=== PATIENT | male | born 1950 | race Caucasian/White ===

== ENCOUNTER 2024-06-01 14:44 | Inpatient (IN) | payer OTHER ==
[~2024-06-01] VITALS: Ht 180.3 cm; Wt 83.5 kg
[2024-06-01] VITALS (28 sets, daily range): BP systolic 48–199; BP diastolic 32–101; TEMP 98; O2SAT 98–100
[2024-06-01] MEDS ORDERED: MECL12.5 PO (15:11)
[2024-06-01] MEDS ORDERED: SEVE800T8 (15:11)
[2024-06-01] MEDS ORDERED: GUAI-1197 PO (15:11)
[2024-06-01] MEDS ORDERED: PANT40TA49 PO (15:11)
[2024-06-01] MEDS ORDERED: BENZ200C53 PO (15:11)
[2024-06-01] MEDS ORDERED: FURO-151 PO (15:11)
[2024-06-01] MEDS ORDERED: CARV12.52 PO (15:11)
[2024-06-01] MEDS ORDERED: NIFE30TA2 PO (15:11)
[2024-06-01] MEDS ORDERED: KRIL1CAP19 PO (15:11)
[2024-06-01] MEDS ORDERED: ROSU5TAB (15:11)
[2024-06-01] MEDS ORDERED: HYDR-3326 PO (15:11)
[2024-06-01] MEDS ORDERED: SEVE800T8 PO (15:11)
[2024-06-01] MEDS ORDERED: OMEP40CA21 (15:11)
[2024-06-01] MEDS ORDERED: DOLU50TA PO (15:11)
[2024-06-01] MEDS ORDERED: LAMO100T17 PO (15:11)
[2024-06-01] MEDS ORDERED: LINA5TAB PO (15:11)
[2024-06-01] MEDS ORDERED: HYDR-4077 PO (15:11)
[2024-06-01] MEDS ORDERED: TAMS0.4C34 PO (15:11)
[2024-06-01] MEDS ORDERED: LEVO88CA4 PO (15:11)
[2024-06-01] MEDS ORDERED: ACET-2605 PO (15:11)
[2024-06-01 15:45] LABS: BASOPHILS # (AUTO) 0.1 K/UL (0.0-0.2); BASOPHILS % (AUTO) 1.1 % (0.0-2.0); DIFFERENTIAL COMMENT 1; EOSINOPHILS # (AUTO) 0.1 K/uL (0.0-0.7); EOSINOPHILS % (AUTO) 1.6 % (0.0-7.0); HEMOGLOBIN 9.6 g/dL (12.5-16.3); LYMPHOCYTES # (AUTO) 1.6 K/uL (0.8-4.8); LYMPHOCYTES % (AUTO) 16.7 % (20.5-51.5); MEAN CORPUSCULAR HEMOGLOBIN 28.4 uug (23.8-33.4); MEAN CORPUSCULAR HGB CONC 32 g/dL (32.5-36.3); MEAN CORPUSCULAR VOLUME 88.7 fL (73.0-96.2); MONOCYTES # (AUTO) 0.8 K/uL (0.1-1.30); MONOCYTES % (AUTO) 8.7 % (0.0-11.0); NEUTROPHILS # (AUTO) 6.7 K/uL (1.8-8.9); NEUTROPHILS % (AUTO) 71.9 % (38.5-71.5); PLATELET COUNT (AUTO) 330 K/uL (152-348); RED BLOOD CELL COUNT(AUTO) 3.38 MIL/uL (4.06-5.63); RED CELL DISTRIBUTION WIDTH 16.3 % (12.1-16.2); WHITE BLOOD COUNT (AUTO) 9.4 K/uL (3.6-10.2)
[2024-06-01 16:06] LABS: CALCIUM 9.5 mg/dL (8.5-10.1); CARBON DIOXIDE 21 mmol/L (21-32); CHLORIDE 93 mmol/L (98-107); GLUCOSE 99 mg/dL (74-106); SODIUM SERUM 132 mmol/L (136-145)
[2024-06-01 16:12] LABS: ALANINE AMINOTRANSFERASE 16 U/L (16-63); ALBUMIN 3.6 g/dL (3.4-5.0); ALKALINE PHOSPHATASE 71 U/L (50-136); ASPARTATE AMINOTRANSFERASE 7 U/L (15-37); BILIRUBIN,DIRECT 0.2 mg/dL (0.0-0.2); BILIRUBIN,TOTAL 0.6 mg/dL (0.2-1.0); NT-PRO BNP 84865 pg/mL (0-125); TOTAL PROTEIN, SERUM 7.6 g/dL (6.4-8.2)
[2024-06-01 16:14] LABS: CREATININE 17.7 mg/dL (0.6-1.3); POTASSIUM 8.1 mmol/L (3.5-5.1); UREA NITROGEN, BLOOD 137 mg/dL (7-18)
[2024-06-01] MEDS ORDERED: ALBUTEROL SULFATE 2.5 MG/3 ML NEBU ONE (16:26)
[2024-06-01] MEDS ORDERED: SODIUM BICARBONATE 8.4% 50 MEQ/50 ML DISP.SYRIN IV ONE (16:28)
[2024-06-01] MEDS ORDERED: FUROSEMIDE 20 MG/2 ML VIAL ONE ×2 (16:28→17:04)
[2024-06-01] MEDS ORDERED: INSULIN REGULAR, HUMAN 1000 UNIT/10 ML VIAL ONE ×2 (16:29→16:30)
[2024-06-01] MEDS ORDERED: SODIUM POLYSTYRENE SULFONATE 15 G/60 ML LIQUID UDC PO ONE (16:30)
[2024-06-01] MEDS: ALBUTEROL SULFATE 2.5 MG/3 ML NEBU NEB ONE (16:30)
[2024-06-01] MEDS ORDERED: DEXTROSE 50% 50 ML DISP.SYRIN ONE (16:51)
[2024-06-01] MEDS: FUROSEMIDE 20 MG/2 ML VIAL IVP ONE (17:01)
[2024-06-01] MEDS: SODIUM BICARBONATE 8.4% 50 MEQ/50 ML DISP.SYRIN IV ONE (17:01)
[2024-06-01] MEDS: DEXTROSE 50% 50 ML DISP.SYRIN IV ONE (17:02)
[2024-06-01] MEDS: INSULIN REGULAR, HUMAN 1000 UNIT/10 ML VIAL IV ONE (17:02)
[2024-06-01 17:08] LABS: ABG SITE RIGHT RADIAL; COHb 0.3 % (0.5-1.5); VT, ABG 500 mL
[2024-06-01 17:58] LABS: ABG BASE EXCESS -8.5 mmol/L (-2.0-3.0); ABG HCO3 21.1 mmol/L (21.0-28.0); ABG PCO2 64.4 mmHg (35.0-48.0); ABG PH 7.134 (7.350-7.450); ABG PO2 391.1 mmHg (83.0-108.0); ABG TOTAL HEMOGLOBIN 11.7 G/dL (13.5-17.5); AaDO2 99.7 mmHg; MetHb 0.3 % (0.0-1.5); O2Hb 99.2 % (94.0-98.0)
[2024-06-01] MEDS ORDERED: ALBUTEROL SULFATE 8 GM HFA.AER.AD IH PRN (18:30)
[2024-06-01] MEDS: LAMOTRIGINE 100 MG TABLET PO SCH (18:30)
[2024-06-01] MEDS ORDERED: ONDANSETRON 4 MG/2 ML VIAL IV PRN (18:30)
[2024-06-01 18:46] LABS: *BILIRUBIN,URIN NEGATIVE (NEGATIVE); *BLOOD, URINE NEGATIVE (NEGATIVE); *CLARITY,URINE CLEAR (CLEAR); *COLOR,URINE YELLOW (YELLOW); *KETONES,URINE NEGATIVE (NEGATIVE); *PROTEIN,URINE 3+ (NEGATIVE); *UROBILINOGEN,URINE 0.2 E.U./dl (NORMAL); LEUKOCYTE ESTERASE ,URINE TRACE (NEGATIVE); NITRITE, URINE NEGATIVE (NEGATIVE); RBC,URINE 0-3 /HPF (0-3); UGLUCOSE NEGATIVE (NEGATIVE); WBC,URINE 0-3 /HPF (0-3)
[2024-06-01] MEDS: ETOMIDATE 20 MG/10 ML VIAL IV ONE (19:02)
[2024-06-01] MEDS: ROCURONIUM BROMIDE 50 MG/5 ML VIAL IV ONE (19:15)
[2024-06-01] MEDS: PROPOFOL 100 ML IV PRN (19:36)
[2024-06-01] MEDS: hydrALAZINE HCL 20 MG/1 ML VIAL IV PRN (21:04)
[2024-06-01] MEDS: ATORVASTATIN 40 MG TABLET PO SCH (21:15)
[2024-06-01] MEDS: MORPHINE SULFATE 2 MG/1 ML DISP.SYRIN IVP PRN (21:20)
[2024-06-01] MEDS ORDERED: ALBUMIN HUMAN 25% 100 ML IV ONE (22:00)
[2024-06-02] VITALS (67 sets, daily range): BP systolic 83–184; BP diastolic 48–89; TEMP 97.8–98.9; O2SAT 97–100
[2024-06-02] MEDS: BLOOD SUGAR DIAGNOSTIC 1 EACH STRIP VI SCH (00:27)
[2024-06-02 05:30] LABS: BASOPHILS % (AUTO) 0.8 % (0.0-2.0); EOSINOPHILS # (AUTO) 0.1 K/uL (0.0-0.7); EOSINOPHILS % (AUTO) 2.3 % (0.0-7.0); HEMATOCRIT 28.4 % (36.7-47.1); HEMOGLOBIN 9.5 g/dL (12.5-16.3); LYMPHOCYTES # (AUTO) 1.5 K/uL (0.8-4.8); LYMPHOCYTES % (AUTO) 23.3 % (20.5-51.5); MEAN CORPUSCULAR HEMOGLOBIN 29.6 uug (23.8-33.4); MEAN CORPUSCULAR HGB CONC 34 g/dL (32.5-36.3); MONOCYTES # (AUTO) 0.7 K/uL (0.1-1.30); MONOCYTES % (AUTO) 10.5 % (0.0-11.0); NEUTROPHILS % (AUTO) 63.1 % (38.5-71.5); PLATELET COUNT (AUTO) 291 K/uL (152-348); RED BLOOD CELL COUNT(AUTO) 3.22 MIL/uL (4.06-5.63); RED CELL DISTRIBUTION WIDTH 15.8 % (12.1-16.2); WHITE BLOOD COUNT (AUTO) 6.3 K/uL (3.6-10.2)
[2024-06-02 05:54] LABS: ALANINE AMINOTRANSFERASE 15 U/L (16-63); ALBUMIN 3.2 g/dL (3.4-5.0); ALKALINE PHOSPHATASE 65 U/L (50-136); ASPARTATE AMINOTRANSFERASE 11 U/L (15-37); BILIRUBIN,TOTAL 0.5 mg/dL (0.2-1.0); CALCIUM 9.3 mg/dL (8.5-10.1); CARBON DIOXIDE 28 mmol/L (21-32); CHLORIDE 94 mmol/L (98-107); GLUCOSE 65 mg/dL (74-106); SODIUM SERUM 135 mmol/L (136-145); TOTAL PROTEIN, SERUM 6.9 g/dL (6.4-8.2)
[2024-06-02 06:02] LABS: POTASSIUM 6.4 mmol/L (3.5-5.1)
[2024-06-02 06:03] LABS: UREA NITROGEN, BLOOD 98 mg/dL (7-18)
[2024-06-02 06:04] LABS: PHOSPHOROUS 8.3 mg/dL (2.5-4.9)
[2024-06-02] MEDS: DEXTROSE 50% 50 ML DISP.SYRIN IV PRN (06:22)
[2024-06-02] MEDS ORDERED: LEVOTHYROXINE SODIUM 88 MCG TABLET PO SCH (06:30)
[2024-06-02] MEDS ORDERED: hydrALAZINE HCL 20 MG/1 ML VIAL IV ONE (06:45)
[2024-06-02] MEDS ORDERED: ALBUMIN HUMAN 25% 50 ML IV ONE (06:45)
[2024-06-02] MEDS ORDERED: ALBUMIN HUMAN 25% 50 ML IV PRN ×2 (07:00→07:30)
[2024-06-02] MEDS: SODIUM BICARBONATE 8.4% 50 MEQ/50 ML DISP.SYRIN IV ONE (07:11)
[2024-06-02 08:24] LABS: ABG HCO3 26.4 mmol/L (21.0-28.0); ABG PCO2 31.4 mmHg (35.0-48.0); ABG PH 7.543 (7.350-7.450); ABG PO2 88.7 mmHg (83.0-108.0); ABG SITE RIGHT RADIAL; ABG TOTAL HEMOGLOBIN 9.1 G/dL (13.5-17.5); AaDO2 97.7 mmHg; MetHb 0.3 % (0.0-1.5); O2Hb 96.3 % (94.0-98.0); VT, ABG 500 mL
[2024-06-02] MEDS ORDERED: PROPOFOL 100 ML IV PRN (08:30)
[2024-06-02] MEDS: PROPOFOL 100 ML IV PRN (08:48)
[2024-06-02] MEDS: CARVEDILOL 12.5 MG TABLET PO SCH (08:53)
[2024-06-02] MEDS: ASPIRIN 81 MG TAB.CHEW PO SCH (08:53)
[2024-06-02] MEDS: TAMSULOSIN HCL 0.4 MG CAP.SR.24H PO SCH (08:53)
[2024-06-02] MEDS: PANTOPRAZOLE SODIUM 40 MG TABLET.DR PO SCH (08:53)
[2024-06-02] MEDS ORDERED: BUDE10.2 IH (08:53)
[2024-06-02] MEDS: HEPARIN SODIUM,PORCINE 5,000 UNITS/ML VIAL SQ SCH (08:58)
[2024-06-02] MEDS: NIFEdipine XL 30 MG TABSR PO SCH (09:03)
[2024-06-02] MEDS ORDERED: FINA5TAB11 PO (10:08)
[2024-06-02] MEDS ORDERED: EMTR1TAB13 PO (10:08)
[2024-06-02] MEDS ORDERED: NIFE90TA61 PO (10:22)
[2024-06-02] MEDS ORDERED: ATOR10TA PO (10:22)
[2024-06-02] MEDS ORDERED: ACYC-106 PO (10:22)
[2024-06-02] MEDS ORDERED: LOSA50TA39 PO (10:32)
[2024-06-02] MEDS: NEPRO 1000 ML GT PRN (13:13)
[2024-06-02 14:14] LABS: FREE T4 (FREE THYROXINE) 0.73 ng/dL (0.76-1.46)
[2024-06-02] MEDS ORDERED: EPOETIN ALFA 20,000 UNIT/ML ML SQ ONE (14:15)
[2024-06-02] MEDS: SEVELAMER CARBONATE 800 MG TABLET PO SCH (14:32)
[2024-06-02] MEDS: EPOETIN ALFA 20,000 UNIT/ML ML SQ ONE (14:33)
[2024-06-02] MEDS: SODIUM ZIRCONIUM CYCLOSILICATE 10 GM POWD.PACK NG ONE (16:07)
[2024-06-02] MEDS ORDERED: ALBUMIN HUMAN 25% 100 ML IV PRN (19:45)
[2024-06-02] MEDS: ALBUMIN HUMAN 25% 100 ML IV ONE (20:08)
[2024-06-02] MEDS ORDERED: ALBUMIN HUMAN 25% 50 ML ONE (20:10)
[2024-06-03] VITALS (47 sets, daily range): BP systolic 88–182; BP diastolic 41–82; TEMP 97.7–98.7; O2SAT 90–100
[2024-06-03 05:05] LABS: BASOPHILS # (AUTO) 0.1 K/UL (0.0-0.2); BASOPHILS % (AUTO) 1.5 % (0.0-2.0); EOSINOPHILS # (AUTO) 0.3 K/uL (0.0-0.7); EOSINOPHILS % (AUTO) 4.5 % (0.0-7.0); HEMATOCRIT 25.3 % (36.7-47.1); HEMOGLOBIN 8.7 g/dL (12.5-16.3); LYMPHOCYTES # (AUTO) 1.2 K/uL (0.8-4.8); LYMPHOCYTES % (AUTO) 20.4 % (20.5-51.5); MEAN CORPUSCULAR HEMOGLOBIN 30.2 uug (23.8-33.4); MEAN CORPUSCULAR HGB CONC 34 g/dL (32.5-36.3); MEAN CORPUSCULAR VOLUME 87.7 fL (73.0-96.2); MONOCYTES # (AUTO) 0.5 K/uL (0.1-1.30); MONOCYTES % (AUTO) 8.7 % (0.0-11.0); NEUTROPHILS # (AUTO) 3.9 K/uL (1.8-8.9); NEUTROPHILS % (AUTO) 64.9 % (38.5-71.5); PLATELET COUNT (AUTO) 260 K/uL (152-348); RED BLOOD CELL COUNT(AUTO) 2.88 MIL/uL (4.06-5.63); RED CELL DISTRIBUTION WIDTH 15.8 % (12.1-16.2)
[2024-06-03 05:08] LABS: HEPATITIS B SURFACE AB, QUAL Reactive (.); HEPATITIS B SURFACE AG Negative (Negative)
[2024-06-03 05:08] LABS: HEPATITIS B SURFACE AB, QUAL Reactive (.); HEPATITIS B SURFACE AG Negative (Negative)
[2024-06-03 05:53] LABS: IRON, SERUM 69 ug/dL (50-175)
[2024-06-03 06:02] LABS: CALCIUM 9.3 mg/dL (8.5-10.1); CARBON DIOXIDE 24 mmol/L (21-32); CHLORIDE 96 mmol/L (98-107); GLUCOSE 101 mg/dL (74-106); MAGNESIUM 2.3 mg/dL (1.8-2.4); POTASSIUM 5.6 mmol/L (3.5-5.1); SODIUM SERUM 134 mmol/L (136-145); UREA NITROGEN, BLOOD 72 mg/dL (7-18)
[2024-06-03 06:13] LABS: CREATININE 11.5 mg/dL (0.6-1.3)
[2024-06-03 06:14] LABS: PHOSPHOROUS 8.3 mg/dL (2.5-4.9)
[2024-06-03 06:25] LABS: ABG BASE EXCESS -5.1 mmol/L (-2.0-3.0); ABG HCO3 18.8 mmol/L (21.0-28.0); ABG PCO2 30.4 mmHg (35.0-48.0); ABG PH 7.409 (7.350-7.450); ABG PO2 95.5 mmHg (83.0-108.0); ABG SITE RIGHT RADIAL; ABG TOTAL HEMOGLOBIN 9.2 G/dL (13.5-17.5); AaDO2 97.4 mmHg; COHb 0.3 % (0.5-1.5); MetHb 0.3 % (0.0-1.5); O2Hb 96.1 % (94.0-98.0); VT, ABG 500 mL
[2024-06-03] MEDS: SEVELAMER CARBONATE 800 MG POWD.PACK GT SCH ×2 (08:25→19:14)
[2024-06-03] MEDS: PANTOPRAZOLE ORAL SUSPENSION 40 MG SUSPDR.PKT GT SCH (08:27)
[2024-06-03 09:28] LABS: FERRITIN 1690 ng/mL (26-388)
[2024-06-03] MEDS: LORAZEPAM 2 MG/1 ML VIAL IV ONE (12:08)
[2024-06-03] MEDS ORDERED: NOREPINEPHRINE 8MG/NS 250ML 250 ML IV PRN (14:15)
[2024-06-03] MEDS: NOREPINEPHRINE BITARTRATE 32 MG in IV NORMAL SALINE 218 ML IV PRN (16:54)
[2024-06-03] MEDS: HEPARIN SODIUM,PORCINE 5,000 UNITS/ML VIAL SQ SCH (20:32)
[2024-06-04] VITALS (47 sets, daily range): BP systolic 83–179; BP diastolic 43–133; TEMP 97.8–101.5; O2SAT 82–100
[2024-06-04 05:13] LABS: BASOPHILS # (AUTO) 0.1 K/UL (0.0-0.2); BASOPHILS % (AUTO) 1.3 % (0.0-2.0); EOSINOPHILS # (AUTO) 0.4 K/uL (0.0-0.7); EOSINOPHILS % (AUTO) 5.6 % (0.0-7.0); HEMATOCRIT 29.5 % (36.7-47.1); LYMPHOCYTES # (AUTO) 1.5 K/uL (0.8-4.8); LYMPHOCYTES % (AUTO) 18.8 % (20.5-51.5); MEAN CORPUSCULAR HEMOGLOBIN 29.7 uug (23.8-33.4); MEAN CORPUSCULAR HGB CONC 34 g/dL (32.5-36.3); MEAN CORPUSCULAR VOLUME 87.8 fL (73.0-96.2); MONOCYTES # (AUTO) 0.6 K/uL (0.1-1.30); MONOCYTES % (AUTO) 8.4 % (0.0-11.0); NEUTROPHILS # (AUTO) 5.1 K/uL (1.8-8.9); NEUTROPHILS % (AUTO) 65.9 % (38.5-71.5); PLATELET COUNT (AUTO) 255 K/uL (152-348); RED BLOOD CELL COUNT(AUTO) 3.36 MIL/uL (4.06-5.63); RED CELL DISTRIBUTION WIDTH 15.6 % (12.1-16.2); WHITE BLOOD COUNT (AUTO) 7.8 K/uL (3.6-10.2)
[2024-06-04 05:54] LABS: CALCIUM 9.1 mg/dL (8.5-10.1); CARBON DIOXIDE 28 mmol/L (21-32); CHLORIDE 92 mmol/L (98-107); GLUCOSE 101 mg/dL (74-106); MAGNESIUM 1.7 mg/dL (1.8-2.4); POTASSIUM 4.5 mmol/L (3.5-5.1); SODIUM SERUM 134 mmol/L (136-145); UREA NITROGEN, BLOOD 47 mg/dL (7-18)
[2024-06-04 06:07] LABS: CREATININE 9.3 mg/dL (0.6-1.3)
[2024-06-04] MEDS: ACETAMINOPHEN 325 MG TABLET PO PRN (06:08)
[2024-06-04 06:09] LABS: PHOSPHOROUS 8.2 mg/dL (2.5-4.9)
[2024-06-04 07:49] LABS: ABG BASE EXCESS 1.5 mmol/L (-2.0-3.0); ABG HCO3 25.3 mmol/L (21.0-28.0); ABG PCO2 36.6 mmHg (35.0-48.0); ABG PH 7.457 (7.350-7.450); ABG PO2 80.5 mmHg (83.0-108.0); ABG SITE RIGHT RADIAL; ABG TOTAL HEMOGLOBIN 10.7 G/dL (13.5-17.5); AaDO2 96.5 mmHg; COHb 0.3 % (0.5-1.5); CPAP,BG 8 cmH20; MetHb 0.3 % (0.0-1.5); O2Hb 95.3 % (94.0-98.0)
[2024-06-04] MEDS ORDERED: PIPERACILLIN SODIUM/TAZOBACTAM 3.375 G in IV DEXTROSE 5% 50 ML IV SCH (08:30)
[2024-06-04] MEDS ORDERED: DC PROPOFOL ONCE EXTUBATED XX PRN (08:30)
[2024-06-04] MEDS: PIPERACILLIN/TAZO 2.25 G in IV DEXTROSE 5% 50 ML IV SCH (09:01)
[2024-06-04] MEDS: MAGNESIUM OXIDE 400 MG TABLET GT ONE (10:00)
[2024-06-04 10:45] LABS: *BILIRUBIN,URIN NEGATIVE (NEGATIVE); *BLOOD, URINE 3+ (NEGATIVE); *CLARITY,URINE CLEAR (CLEAR); *COLOR,URINE YELLOW (YELLOW); *KETONES,URINE NEGATIVE (NEGATIVE); *UROBILINOGEN,URINE 0.2 E.U./dl (NORMAL); LEUKOCYTE ESTERASE ,URINE 1+ (NEGATIVE); NITRITE, URINE NEGATIVE (NEGATIVE); PH,URINE 7.5 (5.0-8.0); UGLUCOSE NEGATIVE (NEGATIVE)
[2024-06-04 10:56] LABS: *PROTEIN,URINE 3+ (NEGATIVE)
[2024-06-04 10:59] LABS: BACTERIA,URINE MANY /HPF (NONE SEEN); SQUAMOUS EPITHELIAL CELL,UR FEW /HPF (NONE SEEN); WBC,URINE 20-50 /HPF (0-3)
[2024-06-04] MEDS ORDERED: SEVELAMER CARBONATE 800 MG TABLET PO SCH (12:00)
[2024-06-04] MEDS: hydrALAZINE HCL 50 MG TABLET PO SCH (13:00)
[2024-06-04] MEDS: MAGNESIUM SULFATE/D5W 100 ML IV SCH (13:09)
[2024-06-04] MEDS: NIFEdipine XL 60 MG TABSR PO SCH (16:40)
[2024-06-04] MEDS: LOSARTAN POTASSIUM 50 MG TABLET PO SCH (16:43)
[2024-06-04] MEDS: FUROSEMIDE 40 MG TABLET PO SCH (16:43)
[2024-06-04] MEDS ORDERED: NIFEdipine XL 90 MG TABSR PO SCH (17:00)
[2024-06-04] MEDS: NOREPINEPHRINE BITARTRATE 32 MG in IV NORMAL SALINE 218 ML IV PRN (19:05)
[2024-06-04] MEDS: ATORVASTATIN 10 MG TABLET PO SCH (21:07)
[2024-06-05] VITALS (26 sets, daily range): BP systolic 68–171; BP diastolic 43–68; TEMP 98–99; O2SAT 91–100
[2024-06-05 05:08] LABS: BASOPHILS # (AUTO) 0.1 K/UL (0.0-0.2); EOSINOPHILS # (AUTO) 0.3 K/uL (0.0-0.7); EOSINOPHILS % (AUTO) 3.7 % (0.0-7.0); HEMATOCRIT 30.1 % (36.7-47.1); LYMPHOCYTES # (AUTO) 1.3 K/uL (0.8-4.8); LYMPHOCYTES % (AUTO) 17.8 % (20.5-51.5); MEAN CORPUSCULAR HEMOGLOBIN 29.2 uug (23.8-33.4); MEAN CORPUSCULAR HGB CONC 33 g/dL (32.5-36.3); MONOCYTES # (AUTO) 0.9 K/uL (0.1-1.30); MONOCYTES % (AUTO) 11.8 % (0.0-11.0); NEUTROPHILS # (AUTO) 4.9 K/uL (1.8-8.9); NEUTROPHILS % (AUTO) 65.7 % (38.5-71.5); PLATELET COUNT (AUTO) 247 K/uL (152-348); RED BLOOD CELL COUNT(AUTO) 3.43 MIL/uL (4.06-5.63); WHITE BLOOD COUNT (AUTO) 7.4 K/uL (3.6-10.2)
[2024-06-05 05:29] LABS: CALCIUM 9.7 mg/dL (8.5-10.1); CARBON DIOXIDE 31 mmol/L (21-32); CHLORIDE 98 mmol/L (98-107); CREATININE 7.1 mg/dL (0.6-1.3); GLUCOSE 91 mg/dL (74-106); MAGNESIUM 2.2 mg/dL (1.8-2.4); PHOSPHOROUS 5.7 mg/dL (2.5-4.9); POTASSIUM 4.4 mmol/L (3.5-5.1); SODIUM SERUM 140 mmol/L (136-145); UREA NITROGEN, BLOOD 28 mg/dL (7-18)
[2024-06-05 05:41] LABS: ABG BASE EXCESS 4.9 mmol/L (-2.0-3.0); ABG HCO3 27.3 mmol/L (21.0-28.0); ABG PCO2 32.4 mmHg (35.0-48.0); ABG PH 7.544 (7.350-7.450); ABG PO2 65.5 mmHg (83.0-108.0); ABG SITE LEFT RADIAL; ABG TOTAL HEMOGLOBIN 10.4 G/dL (13.5-17.5); AaDO2 95.2 mmHg; COHb 0.2 % (0.5-1.5); MetHb 0.3 % (0.0-1.5); O2Hb 93.2 % (94.0-98.0)
[2024-06-05] MEDS: LEVOTHYROXINE SODIUM 88 MCG TABLET PO SCH (06:00)
[2024-06-05] MEDS: LINAGLIPTIN 5 MG TABLET PO SCH (08:04)
[2024-06-05] MEDS: FINASTERIDE 5 MG TABLET PO SCH (08:06)
[2024-06-05] MEDS ORDERED: ACYCLOVIR 400 MG TABLET PO SCH (09:00)
[2024-06-05] MEDS: PANTOPRAZOLE SODIUM 40 MG TABLET.DR PO SCH (09:15)
[2024-06-05] MEDS: INSULIN REGULAR, HUMAN 1000 UNIT/10 ML VIAL SQ PRN (11:52)
[2024-06-05] MEDS: SEVELAMER CARBONATE 800 MG TABLET PO SCH (11:53)
[2024-06-05] MEDS: ACYCLOVIR 200 MG CAPSULE PO SCH (12:10)
[2024-06-06] VITALS (34 sets, daily range): BP systolic 106–166; BP diastolic 45–129; TEMP 97.7–98.9; O2SAT 96–100
[2024-06-06 05:52] LABS: BASOPHILS # (AUTO) 0.1 K/UL (0.0-0.2); BASOPHILS % (AUTO) 0.8 % (0.0-2.0); DIFFERENTIAL COMMENT 0; EOSINOPHILS # (AUTO) 0.5 K/uL (0.0-0.7); EOSINOPHILS % (AUTO) 6.8 % (0.0-7.0); HEMATOCRIT 27.4 % (36.7-47.1); HEMOGLOBIN 9.1 g/dL (12.5-16.3); LYMPHOCYTES # (AUTO) 1.6 K/uL (0.8-4.8); LYMPHOCYTES % (AUTO) 22.2 % (20.5-51.5); MEAN CORPUSCULAR HEMOGLOBIN 29.5 uug (23.8-33.4); MEAN CORPUSCULAR HGB CONC 33 g/dL (32.5-36.3); MEAN CORPUSCULAR VOLUME 88.6 fL (73.0-96.2); MONOCYTES # (AUTO) 0.9 K/uL (0.1-1.30); MONOCYTES % (AUTO) 12.3 % (0.0-11.0); NEUTROPHILS # (AUTO) 4.2 K/uL (1.8-8.9); NEUTROPHILS % (AUTO) 57.9 % (38.5-71.5); PLATELET COUNT (AUTO) 243 K/uL (152-348); RED BLOOD CELL COUNT(AUTO) 3.09 MIL/uL (4.06-5.63); RED CELL DISTRIBUTION WIDTH 15.4 % (12.1-16.2); WHITE BLOOD COUNT (AUTO) 7.2 K/uL (3.6-10.2)
[2024-06-06 05:59] LABS: CALCIUM 9.9 mg/dL (8.5-10.1); CARBON DIOXIDE 31 mmol/L (21-32); CHLORIDE 98 mmol/L (98-107); GLUCOSE 102 mg/dL (74-106); MAGNESIUM 2.4 mg/dL (1.8-2.4); POTASSIUM 4.5 mmol/L (3.5-5.1); SODIUM SERUM 141 mmol/L (136-145); UREA NITROGEN, BLOOD 47 mg/dL (7-18)
[2024-06-06 06:18] LABS: C-REACTIVE PROTEIN 3.57 mg/dL (0.00-0.30)
[2024-06-06 06:20] LABS: CREATININE 9.9 mg/dL (0.6-1.3)
[2024-06-06] MEDS: ALBUTEROL SULFATE 2.5 MG/3 ML NEBU NEB PRN (10:56)
[2024-06-07] VITALS (16 sets, daily range): BP systolic 94–178; BP diastolic 47–75; TEMP 98–99.5; O2SAT 87–100
[2024-06-07 05:38] LABS: MEAN CORPUSCULAR VOLUME 88.6 fL (73.0-96.2)
[2024-06-07 06:02] LABS: BASOPHILS # (AUTO) 0.1 K/UL (0.0-0.2); BASOPHILS % (AUTO) 1.1 % (0.0-2.0); DIFFERENTIAL COMMENT 0; EOSINOPHILS # (AUTO) 0.4 K/uL (0.0-0.7); EOSINOPHILS % (AUTO) 5.1 % (0.0-7.0); HEMATOCRIT 28.4 % (36.7-47.1); HEMOGLOBIN 9.3 g/dL (12.5-16.3); LYMPHOCYTES # (AUTO) 1.8 K/uL (0.8-4.8); LYMPHOCYTES % (AUTO) 23.3 % (20.5-51.5); MEAN CORPUSCULAR HGB CONC 33 g/dL (32.5-36.3); MONOCYTES % (AUTO) 13.4 % (0.0-11.0); NEUTROPHILS # (AUTO) 4.4 K/uL (1.8-8.9); NEUTROPHILS % (AUTO) 57.1 % (38.5-71.5); PLATELET COUNT (AUTO) 279 K/uL (152-348); RED CELL DISTRIBUTION WIDTH 15.7 % (12.1-16.2); WHITE BLOOD COUNT (AUTO) 7.8 K/uL (3.6-10.2)
[2024-06-07 06:14] LABS: CALCIUM 9.6 mg/dL (8.5-10.1); CARBON DIOXIDE 30 mmol/L (21-32); CHLORIDE 99 mmol/L (98-107); GLUCOSE 102 mg/dL (74-106); MAGNESIUM 2.4 mg/dL (1.8-2.4); POTASSIUM 4.8 mmol/L (3.5-5.1); SODIUM SERUM 141 mmol/L (136-145); UREA NITROGEN, BLOOD 32 mg/dL (7-18)
[2024-06-07 06:19] LABS: CREATININE 8.4 mg/dL (0.6-1.3)
== END 2024-06-07 12:41 | disposition home or self-care (01) | DRG 208 ==
LOC: ER 14:44 → CCU 19:10
PROVIDERS: ADMIT Internal Medicine; ATTEND Internal Medicine
PROC: 5A1945Z Respiratory Ventilation, 24-96 Consecutive Hours (ICD-10-PCS; principal; 2024-06-01)
PROC: 0BH17EZ Insertion of Endotracheal Airway into Trachea, Via Natural or Artificial Opening (ICD-10-PCS; 2024-06-01)
PROC: 5A1D70Z Performance of Urinary Filtration, Intermittent, Less than 6 Hours Per Day (ICD-10-PCS; 2024-06-01)
PROC: 05H933Z Insertion of Infusion Device into Right Brachial Vein, Percutaneous Approach (ICD-10-PCS; 2024-06-02)
DX: J96.21 Acute and chronic respiratory failure with hypoxia (principal); N18.6 End stage renal disease; I21.A1 Myocardial infarction type 2; G93.41 Metabolic encephalopathy; I50.33 Acute on chronic diastolic (congestive) heart failure; J69.0 Pneumonitis due to inhalation of food and vomit; J44.0 Chronic obstructive pulmonary disease with (acute) lower respiratory infection; I13.2 Hypertensive heart and chronic kidney disease with heart failure and with stage 5 chronic kidney disease, or end stage renal disease; I16.9 Hypertensive crisis, unspecified; N39.0 Urinary tract infection, site not specified; E87.4 Mixed disorder of acid-base balance; E87.1 Hypo-osmolality and hyponatremia; J96.22 Acute and chronic respiratory failure with hypercapnia; E87.5 Hyperkalemia; F31.9 Bipolar disorder, unspecified; J44.9 Chronic obstructive pulmonary disease, unspecified; N40.0 Benign prostatic hyperplasia without lower urinary tract symptoms; E11.22 Type 2 diabetes mellitus with diabetic chronic kidney disease; E03.9 Hypothyroidism, unspecified; I35.8 Other nonrheumatic aortic valve disorders; I25.10 Atherosclerotic heart disease of native coronary artery without angina pectoris; I70.0 Atherosclerosis of aorta; D64.9 Anemia, unspecified; I27.20 Pulmonary hypertension, unspecified; Z99.2 Dependence on renal dialysis; Z88.2 Allergy status to sulfonamides; Z88.5 Allergy status to narcotic agent; Z88.6 Allergy status to analgesic agent; Z79.890 Hormone replacement therapy; Z79.899 Other long term (current) drug therapy; M89.8X9 Other specified disorders of bone, unspecified site
CPT/HCPCS: 36415; 36600; 71045; 82803; 83550; 83605; 83735; 84100; 84443; 84481; 84484; 85025; 85730; 86140; 86706; 87040; 87340; 87536; 90937; 93005; 93307; 94002; 94003; 94640; 94664; 94760; A4606; A4663; G0378; J0360; J0885; J1644; J1815; J1940; J2060; J2270; J2543; J3475; J3490; J7040; P9047

== ENCOUNTER 2024-09-21 11:10 | Inpatient (IN) | payer OTHER ==
[~2024-09-21] VITALS: Ht 177.8 cm; Wt 78.0 kg
[~2024-09-21 11:10] MED LIST: ACYC-106 PO; ATOR10TA PO; BENZ200C53 PO; BUDE10.2 IH; CARV12.52 PO; DOLU50TA PO; EMTR1TAB13 PO; FINA5TAB11 PO; FURO-151 PO; GUAI-1197 PO; HYDR-3326 PO; HYDR-4077 PO; KRIL1CAP19 PO; LAMO100T17 PO; LEVO88CA4 PO; LINA5TAB PO; LOSA50TA39 PO; MECL12.5 PO; NIFE90TA61 PO; PANT40TA49 PO; SEVE800T8 PO; TAMS0.4C34 PO
[2024-09-21 11:48] LABS: BASOPHILS # (AUTO) 0.1 K/UL (0.0-0.2); BASOPHILS % (AUTO) 0.8 % (0.0-2.0); EOSINOPHILS # (AUTO) 0.2 K/uL (0.0-0.7); HEMATOCRIT 33.4 % (36.7-47.1); HEMOGLOBIN 10.7 g/dL (12.5-16.3); LYMPHOCYTES # (AUTO) 1.8 K/uL (0.8-4.8); LYMPHOCYTES % (AUTO) 27.2 % (20.5-51.5); MEAN CORPUSCULAR HEMOGLOBIN 27.6 uug (23.8-33.4); MEAN CORPUSCULAR HGB CONC 32 g/dL (32.5-36.3); MONOCYTES # (AUTO) 0.5 K/uL (0.1-1.30); MONOCYTES % (AUTO) 7.7 % (0.0-11.0); NEUTROPHILS # (AUTO) 4.1 K/uL (1.8-8.9); NEUTROPHILS % (AUTO) 61.3 % (38.5-71.5); PLATELET COUNT (AUTO) 249 K/uL (152-348); RED BLOOD CELL COUNT(AUTO) 3.89 MIL/uL (4.06-5.63); RED CELL DISTRIBUTION WIDTH 18.8 % (12.1-16.2); WHITE BLOOD COUNT (AUTO) 6.6 K/uL (3.6-10.2)
[2024-09-21 11:57] LABS: CALCIUM 9.6 mg/dL (8.5-10.1); CARBON DIOXIDE 32 mmol/L (21-32); CHLORIDE 101 mmol/L (98-107); GLUCOSE 157 mg/dL (74-106); POTASSIUM 4.9 mmol/L (3.5-5.1); SODIUM SERUM 140 mmol/L (136-145); UREA NITROGEN, BLOOD 49 mg/dL (7-18)
[2024-09-21 12:02] LABS: DIFFERENTIAL COMMENT 1
[2024-09-21 12:04] LABS: CREATININE 8.5 mg/dL (0.6-1.3)
[2024-09-21 12:13] LABS: ALANINE AMINOTRANSFERASE 12 U/L (16-63); ALBUMIN 3.3 g/dL (3.4-5.0); ALKALINE PHOSPHATASE 66 U/L (50-136); ASPARTATE AMINOTRANSFERASE 11 U/L (15-37); BILIRUBIN,DIRECT 0.1 mg/dL (0.0-0.2); BILIRUBIN,TOTAL 0.4 mg/dL (0.2-1.0); NT-PRO BNP 68751 pg/mL (0-125); TOTAL PROTEIN, SERUM 6.9 g/dL (6.4-8.2)
[2024-09-21] MEDS ORDERED: hydrALAZINE HCL 20 MG/1 ML VIAL ONE ×2 (13:06→15:39)
[2024-09-21] MEDS: hydrALAZINE HCL 20 MG/1 ML VIAL IV ONE ×3 (13:13→22:54)
[2024-09-21] MEDS ORDERED: ONDANSETRON 4 MG/2 ML VIAL IV PRN (15:00)
[2024-09-21] MEDS ORDERED: REMEDY ESSENTIAL ZINC PASTE 113 GM TP PRN (15:00)
[2024-09-21] MEDS ORDERED: MAGNESIUM HYDROXIDE 30 ML LIQUID UDC PO PRN (15:00)
[2024-09-21] MEDS ORDERED: CEFTRIAXONE /D5W 50ML IVPB **ER PYXIS IV ONE (15:35)
[2024-09-21] MEDS ORDERED: AZITHROMYCIN 500MG/ D5W 250ML IVPB **ER PYXIS ONLY IV ONE (15:40)
[2024-09-21] MEDS: AZITHROMYCIN IV 500 MG in IV DEXTROSE 5% 250 ML IV SCH (15:59)
[2024-09-21] MEDS: CEFTRIAXONE 1 G in IV DEXTROSE 5% 50 ML IV SCH (15:59)
[2024-09-21] MEDS ORDERED: LORAZEPAM 2 MG/1 ML VIAL ONE (16:12)
[2024-09-21] MEDS: LORAZEPAM 2 MG/1 ML VIAL IV ONE (16:24)
[2024-09-21] MEDS ORDERED: HALOPERIDOL LACTATE 5 MG/1 ML VIAL ONE (16:34)
[2024-09-21 16:45] VITALS: BP 251/126; TEMP 97.7; O2SAT 100
[2024-09-21 17:00] VITALS: TEMP 97.9
[2024-09-21] MEDS: HALOPERIDOL LACTATE 5 MG/1 ML VIAL IV ONE (17:00)
[2024-09-21 17:19] VITALS: BP 198/79; TEMP 97.7; O2SAT 100
[2024-09-21 19:15] VITALS: O2SAT 98
[2024-09-21 19:30] VITALS: BP 228/118; TEMP 96.9; O2SAT 100
[2024-09-22] VITALS (11 sets, daily range): BP systolic 116–220; BP diastolic 56–100; TEMP 97.8–99; O2SAT 92–100
[2024-09-22 00:25] LABS: ABG BASE EXCESS -2.9 mmol/L (-2.0-3.0); ABG HCO3 26.8 mmol/L (21.0-28.0); ABG PCO2 70.5 mmHg (35.0-48.0); ABG PH 7.198 (7.350-7.450); ABG SITE LEFT RADIAL; ABG TOTAL HEMOGLOBIN 14.3 G/dL (13.5-17.5); AaDO2 87.7 mmHg; COHb 0.8 % (0.5-1.5); MetHb 0.1 % (0.0-1.5); O2Hb 86.5 % (94.0-98.0)
[2024-09-22] MEDS ORDERED: TRAZODONE 50 MG TABLET PO PRN (03:15)
[2024-09-22] MEDS: hydrALAZINE HCL 25 MG TABLET PO PRN (05:53)
[2024-09-22] MEDS: PANTOPRAZOLE SODIUM 40 MG TABLET.DR PO SCH (06:11)
[2024-09-22 06:39] LABS: BASOPHILS # (AUTO) 0.1 K/UL (0.0-0.2); BASOPHILS % (AUTO) 1.2 % (0.0-2.0); EOSINOPHILS % (AUTO) 0.4 % (0.0-7.0); HEMATOCRIT 33.6 % (36.7-47.1); LYMPHOCYTES # (AUTO) 1.5 K/uL (0.8-4.8); LYMPHOCYTES % (AUTO) 15.1 % (20.5-51.5); MEAN CORPUSCULAR HEMOGLOBIN 27.8 uug (23.8-33.4); MEAN CORPUSCULAR HGB CONC 33 g/dL (32.5-36.3); MEAN CORPUSCULAR VOLUME 84.7 fL (73.0-96.2); MONOCYTES # (AUTO) 0.7 K/uL (0.1-1.30); MONOCYTES % (AUTO) 7.4 % (0.0-11.0); NEUTROPHILS # (AUTO) 7.5 K/uL (1.8-8.9); NEUTROPHILS % (AUTO) 75.9 % (38.5-71.5); PLATELET COUNT (AUTO) 240 K/uL (152-348); RED BLOOD CELL COUNT(AUTO) 3.97 MIL/uL (4.06-5.63); RED CELL DISTRIBUTION WIDTH 19.3 % (12.1-16.2); WHITE BLOOD COUNT (AUTO) 9.8 K/uL (3.6-10.2)
[2024-09-22 06:47] LABS: DIFFERENTIAL COMMENT 1
[2024-09-22 06:50] LABS: CALCIUM 9.4 mg/dL (8.5-10.1); CARBON DIOXIDE 29 mmol/L (21-32); CHLORIDE 100 mmol/L (98-107); GLUCOSE 115 mg/dL (74-106); MAGNESIUM 1.9 mg/dL (1.8-2.4); PHOSPHOROUS 4.9 mg/dL (2.5-4.9); POTASSIUM 5.5 mmol/L (3.5-5.1); SODIUM SERUM 138 mmol/L (136-145); UREA NITROGEN, BLOOD 39 mg/dL (7-18)
[2024-09-22 07:14] LABS: CREATININE 8.2 mg/dL (0.6-1.3)
[2024-09-22] MEDS ORDERED: MECLIZINE HCL 12.5 MG TABLET PO PRN (15:15)
[2024-09-22] MEDS: CEFTRIAXONE 1 G in IV DEXTROSE 5% 50 ML IV SCH (17:10)
[2024-09-22] MEDS: HEPARIN/D5W DRIP 500 ML IV PRN (17:38)
[2024-09-22] MEDS: SEVELAMER CARBONATE 800 MG TABLET PO SCH (17:42)
[2024-09-22] MEDS: NIFEdipine XL 90 MG TABSR PO SCH (17:43)
[2024-09-22] MEDS: LAMOTRIGINE 100 MG TABLET PO SCH (17:43)
[2024-09-22] MEDS: AZITHROMYCIN IV 500 MG in IV DEXTROSE 5% 250 ML IV SCH (17:43)
[2024-09-22 17:45] LABS: ABG BASE EXCESS 2.9 mmol/L (-2.0-3.0); ABG HCO3 26.6 mmol/L (21.0-28.0); ABG PCO2 37.6 mmHg (35.0-48.0); ABG PH 7.467 (7.350-7.450); ABG PO2 174.1 mmHg (83.0-108.0); ABG SITE LEFT BRACHIAL; ABG TOTAL HEMOGLOBIN 12.2 G/dL (13.5-17.5); AaDO2 99.3 mmHg; COHb 0.1 % (0.5-1.5); MetHb 0.1 % (0.0-1.5); O2Hb 99.3 % (94.0-98.0)
[2024-09-22] MEDS ORDERED: Medication Not On Formulary EA (Sevelamer Carbonate (Renvela) 1,600 MG) PO SCH (18:00)
[2024-09-22] MEDS: ATORVASTATIN 10 MG TABLET PO SCH (20:59)
[2024-09-22] MEDS ORDERED: PANTOPRAZOLE SODIUM 40 MG TABLET.DR PO SCH (21:00)
[2024-09-22] MEDS ORDERED: TAMSULOSIN HCL 0.4 MG CAP.SR.24H PO SCH (21:00)
[2024-09-23] VITALS (12 sets, daily range): BP systolic 115–169; BP diastolic 64–76; TEMP 97.9–99.7; O2SAT 95–99
[2024-09-23] MEDS: HEPARIN SODIUM,PORCINE 5,000 UNITS/ML VIAL IV ONE ×2 (00:43→14:55)
[2024-09-23] MEDS: ACETAMINOPHEN 325 MG TABLET PO PRN (03:46)
[2024-09-23] MEDS: LEVOTHYROXINE SODIUM 88 MCG TABLET PO SCH (06:35)
[2024-09-23 06:48] LABS: BASOPHILS # (AUTO) 0.1 K/UL (0.0-0.2); BASOPHILS % (AUTO) 0.6 % (0.0-2.0); EOSINOPHILS # (AUTO) 0.2 K/uL (0.0-0.7); EOSINOPHILS % (AUTO) 2.3 % (0.0-7.0); HEMATOCRIT 31.4 % (36.7-47.1); HEMOGLOBIN 10.2 g/dL (12.5-16.3); LYMPHOCYTES # (AUTO) 2.2 K/uL (0.8-4.8); LYMPHOCYTES % (AUTO) 27.5 % (20.5-51.5); MEAN CORPUSCULAR HEMOGLOBIN 27.5 uug (23.8-33.4); MEAN CORPUSCULAR HGB CONC 33 g/dL (32.5-36.3); MEAN CORPUSCULAR VOLUME 84.2 fL (73.0-96.2); MONOCYTES # (AUTO) 0.8 K/uL (0.1-1.30); NEUTROPHILS # (AUTO) 4.8 K/uL (1.8-8.9); NEUTROPHILS % (AUTO) 59.6 % (38.5-71.5); PLATELET COUNT (AUTO) 239 K/uL (152-348); RED BLOOD CELL COUNT(AUTO) 3.73 MIL/uL (4.06-5.63); RED CELL DISTRIBUTION WIDTH 19.4 % (12.1-16.2)
[2024-09-23] MEDS ORDERED: LEVOTHYROXINE SODIUM 88 MCG PO SCH (07:00)
[2024-09-23 07:04] LABS: DIFFERENTIAL COMMENT 1
[2024-09-23 07:06] LABS: ALANINE AMINOTRANSFERASE 12 U/L (16-63); ALBUMIN 2.7 g/dL (3.4-5.0); ALKALINE PHOSPHATASE 50 U/L (50-136); ASPARTATE AMINOTRANSFERASE 21 U/L (15-37); BILIRUBIN,TOTAL 0.4 mg/dL (0.2-1.0); CALCIUM 9.1 mg/dL (8.5-10.1); CARBON DIOXIDE 30 mmol/L (21-32); CHLORIDE 99 mmol/L (98-107); GLUCOSE 103 mg/dL (74-106); PHOSPHOROUS 4.6 mg/dL (2.5-4.9); POTASSIUM 4.7 mmol/L (3.5-5.1); SODIUM SERUM 137 mmol/L (136-145); TOTAL PROTEIN, SERUM 6.4 g/dL (6.4-8.2); UREA NITROGEN, BLOOD 34 mg/dL (7-18)
[2024-09-23 07:07] LABS: CREATININE 7.8 mg/dL (0.6-1.3)
[2024-09-23] MEDS: LINAGLIPTIN 5 MG TABLET PO SCH (08:23)
[2024-09-23] MEDS: ACYCLOVIR 200 MG CAPSULE PO SCH (08:24)
[2024-09-23] MEDS: GUAIFENESIN SUGAR FREE 100 MG/5 ML UDC PO PRN (08:31)
[2024-09-23] MEDS ORDERED: Emtricitabine/Tenofov Alafenam (Descovy 200-25 mg Tablet PO SCH (09:00)
[2024-09-23] MEDS ORDERED: FINASTERIDE 5 MG TABLET PO SCH (09:00)
[2024-09-23] MEDS ORDERED: ACYCLOVIR 400 MG TABLET PO SCH (09:00)
[2024-09-23] MEDS ORDERED: DOLUTEGRAVIR SODIUM 50 MG PO SCH (09:00)
[2024-09-23] MEDS: ASPIRIN 81 MG TAB.CHEW PO SCH (12:46)
[2024-09-23] MEDS: LOSARTAN POTASSIUM 50 MG TABLET PO SCH (16:24)
[2024-09-23] MEDS: CARVEDILOL 12.5 MG TABLET PO SCH (16:24)
[2024-09-23] MEDS ORDERED: LORAZEPAM 2 MG/1 ML VIAL IV PRN (17:15)
[2024-09-23] MEDS: ATORVASTATIN 40 MG TABLET PO SCH (20:17)
[2024-09-23] MEDS: PANTOPRAZOLE SODIUM 40 MG TABLET.DR PO SCH (20:17)
[2024-09-23] MEDS: hydrALAZINE HCL 20 MG/1 ML VIAL IV PRN (20:18)
[2024-09-24] VITALS (17 sets, daily range): BP systolic 115–166; BP diastolic 52–83; TEMP 97.4–99.2; O2SAT 94–98
[2024-09-24 06:58] LABS: BASOPHILS # (AUTO) 0.1 K/UL (0.0-0.2); BASOPHILS % (AUTO) 1.1 % (0.0-2.0); EOSINOPHILS # (AUTO) 0.3 K/uL (0.0-0.7); EOSINOPHILS % (AUTO) 3.5 % (0.0-7.0); HEMATOCRIT 33.3 % (36.7-47.1); HEMOGLOBIN 10.5 g/dL (12.5-16.3); LYMPHOCYTES # (AUTO) 1.9 K/uL (0.8-4.8); LYMPHOCYTES % (AUTO) 24.4 % (20.5-51.5); MEAN CORPUSCULAR HGB CONC 32 g/dL (32.5-36.3); MEAN CORPUSCULAR VOLUME 85.2 fL (73.0-96.2); MONOCYTES # (AUTO) 0.8 K/uL (0.1-1.30); MONOCYTES % (AUTO) 10.2 % (0.0-11.0); NEUTROPHILS # (AUTO) 4.6 K/uL (1.8-8.9); NEUTROPHILS % (AUTO) 60.8 % (38.5-71.5); PLATELET COUNT (AUTO) 260 K/uL (152-348); RED CELL DISTRIBUTION WIDTH 19.5 % (12.1-16.2); WHITE BLOOD COUNT (AUTO) 7.6 K/uL (3.6-10.2)
[2024-09-24 07:23] LABS: DIFFERENTIAL COMMENT 1
[2024-09-24 07:25] LABS: ALANINE AMINOTRANSFERASE 10 U/L (16-63); ALBUMIN 2.7 g/dL (3.4-5.0); ALKALINE PHOSPHATASE 48 U/L (50-136); ASPARTATE AMINOTRANSFERASE 18 U/L (15-37); BILIRUBIN,TOTAL 0.4 mg/dL (0.2-1.0); CALCIUM 9.1 mg/dL (8.5-10.1); CARBON DIOXIDE 28 mmol/L (21-32); CHLORIDE 99 mmol/L (98-107); CREATININE 7.2 mg/dL (0.6-1.3); GLUCOSE 113 mg/dL (74-106); PHOSPHOROUS 4.2 mg/dL (2.5-4.9); SODIUM SERUM 136 mmol/L (136-145); TOTAL PROTEIN, SERUM 6.8 g/dL (6.4-8.2); UREA NITROGEN, BLOOD 34 mg/dL (7-18)
[2024-09-24] MEDS: HYDROCODONE/APAP 10-325 MG TABLET PO PRN (16:52)
[2024-09-25] VITALS (18 sets, daily range): BP systolic 111–162; BP diastolic 45–74; TEMP 97.7–98.5; O2SAT 9–98
[2024-09-26] VITALS (16 sets, daily range): BP systolic 98–166; BP diastolic 43–76; TEMP 97.8–98.7; O2SAT 93–98
[2024-09-26 07:38] LABS: BASOPHILS # (AUTO) 0.1 K/UL (0.0-0.2); BASOPHILS % (AUTO) 0.8 % (0.0-2.0); EOSINOPHILS # (AUTO) 0.5 K/uL (0.0-0.7); EOSINOPHILS % (AUTO) 6.7 % (0.0-7.0); HEMATOCRIT 32.7 % (36.7-47.1); HEMOGLOBIN 10.5 g/dL (12.5-16.3); LYMPHOCYTES % (AUTO) 26.3 % (20.5-51.5); MEAN CORPUSCULAR HEMOGLOBIN 27.3 uug (23.8-33.4); MEAN CORPUSCULAR HGB CONC 32 g/dL (32.5-36.3); MEAN CORPUSCULAR VOLUME 84.9 fL (73.0-96.2); MONOCYTES # (AUTO) 0.6 K/uL (0.1-1.30); MONOCYTES % (AUTO) 8.2 % (0.0-11.0); NEUTROPHILS # (AUTO) 4.4 K/uL (1.8-8.9); PLATELET COUNT (AUTO) 287 K/uL (152-348); RED BLOOD CELL COUNT(AUTO) 3.85 MIL/uL (4.06-5.63); RED CELL DISTRIBUTION WIDTH 19.4 % (12.1-16.2); WHITE BLOOD COUNT (AUTO) 7.5 K/uL (3.6-10.2)
[2024-09-26 07:54] LABS: DIFFERENTIAL COMMENT 1
[2024-09-26 08:02] LABS: CALCIUM 9.1 mg/dL (8.5-10.1); CARBON DIOXIDE 26 mmol/L (21-32); CHLORIDE 101 mmol/L (98-107); GLUCOSE 80 mg/dL (74-106); MAGNESIUM 2.2 mg/dL (1.8-2.4); PHOSPHOROUS 5.8 mg/dL (2.5-4.9); POTASSIUM 5.7 mmol/L (3.5-5.1); SODIUM SERUM 139 mmol/L (136-145); UREA NITROGEN, BLOOD 55 mg/dL (7-18)
[2024-09-26 08:06] LABS: CREATININE 9.3 mg/dL (0.6-1.3)
[2024-09-26] MEDS: ALBUTEROL SULFATE 2.5 MG/3 ML NEBU NEB PRN (11:47)
[2024-09-26] MEDS: TIVICAY 50 MG PO SCH (13:47)
[2024-09-26] MEDS: methylPREDNISolone SOD SUCC 125 MG/2 ML VIAL IV SCH (13:48)
[2024-09-26] MEDS ORDERED: SULFAMETHOXAZOL/TRIMETHOPRI IV 20 ML in IV DEXTROSE 5% 500 ML IV SCH (14:00)
[2024-09-26 14:10] LABS: *HELPER T-LYNPH MARKER CD4)% 27.6 % (30.8-58.5)
[2024-09-26] MEDS: DESCOVY PO SCH (17:34)
[2024-09-26] MEDS: ATOVAQUONE 750 MG/5 ML SUSPENSION UDC PO SCH (18:03)
[2024-09-27] VITALS (11 sets, daily range): BP systolic 137–184; BP diastolic 54–79; TEMP 97.9–98.6; O2SAT 94–98
[2024-09-27] MEDS ORDERED: ASPI81TA31 PO (12:33)
[2024-09-27] MEDS ORDERED: LOSA50TA3 PO (12:33)
[2024-09-27] MEDS ORDERED: CARV12.52 PO (12:33)
[2024-09-27] MEDS ORDERED: ATOR40TA PO (12:33)
[2024-09-27] MEDS ORDERED: ATOV750O PO (12:34)
[2024-09-27] MEDS ORDERED: METH4TAB3 PO (12:34)
== END 2024-09-27 14:00 | disposition home or self-care (01) | DRG 280 ==
LOC: ER 11:10 → TELE3 16:22
PROVIDERS: ADMIT Student in an Organized Health Care Education/Training Program; ATTEND Student in an Organized Health Care Education/Training Program
PROC: 05HC33Z Insertion of Infusion Device into Left Basilic Vein, Percutaneous Approach (ICD-10-PCS; principal; 2024-09-21)
PROC: 5A1D70Z Performance of Urinary Filtration, Intermittent, Less than 6 Hours Per Day (ICD-10-PCS; 2024-09-21)
DX: I13.2 Hypertensive heart and chronic kidney disease with heart failure and with stage 5 chronic kidney disease, or end stage renal disease (principal); I50.43 Acute on chronic combined systolic (congestive) and diastolic (congestive) heart failure; I21.A1 Myocardial infarction type 2; N18.6 End stage renal disease; J96.02 Acute respiratory failure with hypercapnia; J96.01 Acute respiratory failure with hypoxia; J15.9 Unspecified bacterial pneumonia; J44.0 Chronic obstructive pulmonary disease with (acute) lower respiratory infection; J44.1 Chronic obstructive pulmonary disease with (acute) exacerbation; D68.59 Other primary thrombophilia; E44.0 Moderate protein-calorie malnutrition; R04.2 Hemoptysis; Z99.2 Dependence on renal dialysis; Z91.158 Patient's noncompliance with renal dialysis for other reason; I16.0 Hypertensive urgency; D50.9 Iron deficiency anemia, unspecified; F31.9 Bipolar disorder, unspecified; E03.9 Hypothyroidism, unspecified; E11.22 Type 2 diabetes mellitus with diabetic chronic kidney disease; I25.5 Ischemic cardiomyopathy; I25.10 Atherosclerotic heart disease of native coronary artery without angina pectoris; Z53.20 Procedure and treatment not carried out because of patient's decision for unspecified reasons; N40.0 Benign prostatic hyperplasia without lower urinary tract symptoms; E66.9 Obesity, unspecified; Z68.26 Body mass index [BMI] 26.0-26.9, adult; Z74.09 Other reduced mobility; E87.5 Hyperkalemia; M89.8X9 Other specified disorders of bone, unspecified site; Z79.899 Other long term (current) drug therapy; Z79.890 Hormone replacement therapy; Z79.84 Long term (current) use of oral hypoglycemic drugs; Z88.2 Allergy status to sulfonamides; Z88.5 Allergy status to narcotic agent; Z88.6 Allergy status to analgesic agent; Z79.51 Long term (current) use of inhaled steroids; Z87.01 Personal history of pneumonia (recurrent)
CPT/HCPCS: 36415; 36600; 71045; 71250; 82803; 83605; 83735; 84100; 84484; 85025; 85730; 86361; 87040; 87536; 90937; 93005; 94640; 94660; 94760; A4606; A4663; A6209; G0378; J0360; J0456; J0696; J1630; J1644; J2060; J2919; J7040; J7050; J8499